=== PATIENT | male | born 1985 | race Caucasian/White ===

== ENCOUNTER 2017-05-18 15:32 | Emergency (ER) | payer OTHER, MEDICARE ==
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
[2017-05-18] MEDS ORDERED: KETOROLAC TROMETHAMINE 0.45% 4 DROP/0.4 ML DROPERETTE OU ONE (16:37)
[2017-05-18] MEDS ORDERED: OXYCODONE-ACETAMINOPHEN 5-325 MG TABLET PO ONE (16:38)
[2017-05-18] MEDS ORDERED: SILVER SULFADIAZINE 1% CREAM 25 GM TP ONE (16:38)
[2017-05-18] MEDS ORDERED: ERYTHROMYCIN 0.5% OPH OINTMENT 3.5 GM (ER DISP) OU PRN (16:38)
[2017-05-18] MEDS ORDERED: ONDANSETRON 4 MG TAB.RAPDIS PO ONE (16:39)
[2017-05-18] MEDS ORDERED: DIPH/PERTUSS(ACELL)/TETANUS VAC/PF 0.5 ML SYR (>=10YO) IM ONE (16:42)
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
[2017-05-18 18:35] VITALS: BP 115/74
== END 2017-05-18 18:35 | disposition home or self-care (01) ==
LOC: ER 15:32
DX: T20.16XA Burn of first degree of forehead and cheek, initial encounter (principal); T22.10XA Burn of first degree of shoulder and upper limb, except wrist and hand, unspecified site, initial encounter; T26.01XA Burn of right eyelid and periocular area, initial encounter; T31.0 Burns involving less than 10% of body surface; X03.0XXA Exposure to flames in controlled fire, not in building or structure, initial encounter; Z23 Encounter for immunization
CPT/HCPCS: 99284; 90471; 71046; 90715; S0119

== ENCOUNTER 2018-12-15 08:18 | Emergency (ER) | payer OTHER, MEDICARE ==
[2018-12-15 08:26] VITALS: BP 145/83
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
[2018-12-15] MEDS ORDERED: ACETAMINOPHEN 325 MG TABLET PO ONE (09:50)
[2018-12-15] MEDS ORDERED: IBUPROFEN 600 MG TABLET PO ONE (09:50)
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
== END 2018-12-15 10:14 | disposition home or self-care (01) ==
LOC: ER 08:18
DX: S90.31XA Contusion of right foot, initial encounter (principal); M79.671 Pain in right foot; W17.89XA Other fall from one level to another, initial encounter
CPT/HCPCS: 99283